=== PATIENT | male | born 1990 | race African-American/Black ===

== ENCOUNTER 2017-05-15 15:59 | Emergency (ER) | payer SELFPAY ==
[~2017-05-15] VITALS: Ht 172.7 cm; Wt 81.5 kg
[2017-05-15 16:37] VITALS: BP 154/89; PULSE 81; TEMP 36.5; O2SAT 98; Ht 172.7 cm; Wt 81.5 kg
[2017-05-15] MEDS ORDERED: DOXYCYCLINE HYCLATE 100 MG CAP PO STA (17:01)
[2017-05-15] MEDS ORDERED: DOXY100C PO (17:06)
--- NOTE | 2017-05-15 17:07 | EMERGENCY ROOM VISIT NOTE ---
History First contact with patient: 16:42 Chief Complaint: WOUND INFECTION Stated Complaint: BOIL NEXT TO TESTICLES Nursing Triage Summary: patient to ed via triage, states "I had a boil in my groin that we popped the other day, it had a real foul smelling nix discharge. It was hurting a lot before, now it doesn't hurt at all, but its still there and I am nauseous, have stomach pain." History of Present Illness The patient is a 27 year old male who presents to the Emergency Room with complaints of a possible abscess in his groin that has been going on for approximately 1 week. There is a painful mass to the left of his scrotum. His significant other was able to wilfredo it at home. She reports that it was draining a berrios, foul-smelling fluid. The pain has much subsided. He denies any fever or chills. He is concerned that it may still be draining fluid. Review of Systems 6 system review negative. Please see pertinent positives in the history of present illness section. Past Medical/Surgical History Otherwise healthy Family History Hypertension Social History Smoking Status: Current Every Day Smoker Marital Status: in relationship Current/Historical Medications Scheduled Doxycycline Hyclate (Vibramycin), 100 MG PO BID Physical Exam Vital Signs Date Time Temp Pulse Resp B/P (MAP) Pulse Ox O2 Delivery O2 Flow Rate FiO2 05/15/17 16:37 36.5 81 20 154/89 98 Room Air Physical Exam VITALS: Vitals are noted on the nurse's note and reviewed by myself. Vital signs stable. GENERAL: 27-year-old male, in no acute distress, nondiaphoretic, well-developed well-nourished. SKIN: Approximately 1 cm area of fluctuance noted to the left of the scrotum. No significant tenderness. No surrounding erythema. It is actively draining serous fluid. No foul odor noted. No involvement of the scrotum. HEAD: Normocephalic atraumatic. MUSCULOSKELETAL: No muscle atrophy, erythema, or edema noted. Strength 5/5 throughout. NEURO: Patient was alert and oriented to person place and time. Normal sensation to touch. No focal neurological deficits. Medical Decision & Procedures Medications Administered Medications (Trade) Dose Ordered Sig/Abhinav Route Start Time Stop Time Status Last Admin Dose Admin Doxycycline Hyclate (Vibramycin Cap) 100 mg NOW STAT PO 05/15/17 17:01 05/15/17 17:03 DC 05/15/17 17:42 100 MG ED Course The patient was seen and examined A wound culture was performed He was given 1 doxycycline. Discharge instructions were reviewed, and he was discharged in good condition Medical Decision Differential diagnosis: Folliculitis, abscess, cellulitis This patient is a 27-year-old male presents emergency department complaining of a possible abscess in the left side of his groin. On exam, he does have an area of fluctuance. However, it is actively draining. I did not find additional incision and drainage necessary. It is nontender. No surrounding erythema. He is afebrile. He was covered with doxycycline for MRSA as there is a history of MRSA in the household. The patient was instructed to follow-up with his primary care physician for a recheck. He will continue to do warm compresses to encourage additional drainage. He also agrees to return here with any new or worsening symptoms. This chart was completed in part utilizing [employer] Speech Voice Recognition software. Attempts were made to minimize the grammatical errors, random word insertions, pronoun errors and incomplete sentences. Any formal questions or concerns about the content, text or information contained within the body of this dictation should be directly addressed to the provider for clarification. Medication Reconcilliation Current Medication List: was personally reviewed by me Impression Primary Impression: Abscess Departure Information Dispostion Home / Self-Care Condition GOOD Prescriptions Doxycycline Hyclate (VIBRAMYCIN) 100 Mg Cap 100 MG PO BID for 7 Days, #14 CAP Prov: Iesha Brown PA-C 05/15/17 Referrals No Doctor, Assigned (PCP) Patient Instructions [facility] Additional Instructions You were evaluated in the emergency department for an abscess draining in your groin. Please continue warm compresses 3 times daily Please take the entire course of antibiotics Please follow-up with your primary care physician within one week for a checkup Please return to the emergency department for any worsening symptoms such as fever, increasing pain, swelling, redness or any involvement in the scrotum
--- NOTE | 2017-05-17 18:16 | Pharmacy Progress Note ---
ED Pharmacist Culture FollowUp Date of Service: May 17, 2017. Patient with groin abscess that was draining on examination per provider note. Patient was discharged on doxycycline. Surface wound culture grew coag neg staph and cornybacterium. After discussing with Dr. Adkins, no need to adjust current antibiotic regimen.
== END 2017-05-15 17:43 | disposition home or self-care (01) ==
LOC: C.EDB 16:00 → C.EDA 17:43
DX: L02.91 Cutaneous abscess, unspecified (principal); Z82.49 Family history of ischemic heart disease and other diseases of the circulatory system; F17.200 Nicotine dependence, unspecified, uncomplicated